=== PATIENT | female | born 1945 | race Caucasian/White ===

== ENCOUNTER 2019-07-13 10:46 | Inpatient (IN) | payer MEDICARE ==
[~2019-07-13 10:46] MED LIST: Iopamidol-370 76% 500 ML 1 ML ONE
[2019-07-13 11:12] LABS: #Basophils 0.1 thou/uL (0.0-0.2); #Eosinphils 0.1 thou/uL (0.0-0.7); #Lymphocytes 2.8 thou/uL (1.20-3.40); #Monocytes 0.8 thou/uL (0.11-0.59); #Neutrophils 5.7 thou/uL (1.40-6.50); %Basophils 0.9 % (0.0-1.0); %Eosinophils 1.2 % (0.0-10.0); %Lymphocytes 29.6 % (21.0-51.0); %Monocytes 8.5 % (0.0-10.0); %Neutrophils 59.8 % (42.0-75.0); Hemoglobin 16.7 g/dL (12.0-16.0); Mean Corpuscular HGB CONC 32.9 g/dL (32.0-36.0); Mean Corpuscular Hemoglobin 32.5 pg (27.0-31.0); Mean Corpuscular Volume 98.8 fL (78.0-98.0); Mean Platelet Volume 7.7 fL (7.4-10.4); Platelet Count 192 thou/uL (130-400); RBC Distribution Width 12.2 % (11.5-14.5); Red Blood Cell (RBC) Count 5.13 mill/uL (4.20-5.40); White Blood Cell (WBC) Count 9.5 thou/uL (4.8-10.8)
[2019-07-13 11:20] LABS: INR-International Normal Ratio 0.9; PTT 31.1 SEC (22.9-36.1); Prothrombin Time 12.5 sec (12.0-14.7)
[2019-07-13] MEDS ORDERED: Labetalol HCl 100 MG/20 ML VIAL ONE (11:29)
[2019-07-13 11:34] LABS: ALT (SGPT) 74 U/L (8-55); AST (SGOT) 64 U/L (5-34); Albumin 3.9 g/dL (3.4-4.8); Alkaline Phosphatase 117 U/L (40-110); Anion Gap 16 mmol/L (10-20); BUN (Urea Nitrogen) 14 mg/dL (9.8-20.1); Bilirubin, Total 0.6 mg/dL (0.2-1.2); Calc. Creatinine Clearance 0 mL/min (70-130); Calcium 9.5 mg/dL (7.8-10.44); Carbon Dioxide 23 mmol/L (23-31); Chloride 105 mmol/L (98-107); Estimated GFR-MDRD 67; Globulin 3.1 g/dL (2.4-3.5); Glucose 128 mg/dL (83-110); Potassium 4.3 mmol/L (3.5-5.1); Sodium 140 mmol/L (136-145)
--- NOTE | 2019-07-13 11:52 | CT ---
EXAM: CT angiogram head and neck with IV contrast and 3-D reconstructions PROVIDED CLINICAL HISTORY: Slurred speech with left facial droop as well as left-sided weakness and numbness. COMPARISON: Noncontrast CT head also obtained on this date. FINDINGS: Vascular calcifications are seen in the aortic arch with mild irregular atherosclerotic plaque. A nor mal arrangement of the great vessels is present at the aortic arch which are patent. Bilateral subclavian arteries as well as innominate artery and bilateral common carotid arteries are patent. The left internal carotid artery is patent. The right internal carotid artery is occluded with the occlusion extending from the origin of the ICA to the right M1 segment of the right middle cerebral artery. There is also evidence of a filling defect seen in the proximal M1 segment right middle cerebral artery. The exact age of this occlusion is difficult to entirely excluded. Bilateral vertebral arteries are patent. The left vertebral artery is dominant. Basilar artery and bi lateral posterior cerebral arteries are patent. The left middle cerebral artery and anterior cerebral arteries are patent. As described above, there is a filling defect related to thrombus present within the M1 segment of th e right middle cerebral artery. However, enhancement is present within the distal portion of the M1 segment and remainder of the right middle cerebral arteries. There are heterogeneous thyroid nodules bilaterally. Thyroid nodule on the right measures 3.7 cm in greatest dimension with heterogeneous nodule left lobe of thyroid gland measuring 1.5 cm. There is a heterogeneously enhancing 1.9 cm circumscribed mass abutting and likely arising from the t ail of the superficial lobe right parotid gland worrisome for neoplasm. Left parotid gland and bilateral submandibular glands demonstrate a normal CT appearance. No enlarged lymph nodes are seen by CT size criteria within the neck. Degenerative changes are seen in the spine. There is slight anterolisthesis of C3 on C4. 29 hours. Visualized paranasal sinuses are clear. IMPRESSION: 1. Complete occlusion of the right internal carotid artery with the occlusion extended from the origi n to the M1 segment right middle cerebral artery. Exact age of the occlusion is difficult to determine based on this exam. 2. Thrombus in the proximal M1 segment right middle cerebral artery. 3. Patent left internal carotid and left middle cerebral arteries. 4. Heterogeneously enhancing circumscribed mass right neck which abuts and likely arises from the mic l of the right parotid gland. This is suspicious for neoplasm, and ENT consultation is recommended for further evaluation. 5. Heterogeneous thyroid nodules bilaterally. Thyroid ultrasound is recommended for further evaluatio n. 6. Above findings were discussed with Dr. Cancino in the emergency department on 07/13/2019 at 1136 reji rs. Findings concerning occlusion of the right MCA with thrombus in the M1 segment right middle cerebral artery were discussed with Dr. Meeks on 07/13/2019 at 1124 hours.
--- NOTE | 2019-07-13 12:01 | RAD ---
Exam: Chest one view HISTORY:Stroke. Comparison: None FINDINGS: Cardiac silhouette: Normal Aorta: Unremarkable Pulmonary vessels: Normal Costophrenic angles: Clear LUNGS: No masses or consolidation. Pneumothorax: None Osseous abnormalities: None IMPRESSION: No acute cardiopulmonary process.
[2019-07-13] MEDS ORDERED: Sodium Chloride 0.9% 1,000 ML IV SCH (13:47)
[2019-07-13] MEDS ORDERED: Multivit, Adult Inj 10 ML VIAL IV SCH (13:47)
[2019-07-13] MEDS ORDERED: Communication Order-Pharmacy FS SCH (13:47)
[2019-07-13] MEDS ORDERED: Labetalol HCl 100 MG/20 ML VIAL SLOW IVP PRN (13:47)
[2019-07-13] MEDS ORDERED: Lorazepam 2 MG/ML VIAL SLOW IVP PRN (13:47)
[2019-07-13] MEDS ORDERED: Acetaminophen 650 MG Suppository PR PRN (13:47)
[2019-07-13] MEDS ORDERED: Ondansetron ODT 4 MG TAB PO PRN (13:47)
[2019-07-13] MEDS ORDERED: Milk Of Magnesia 30 ML UDCUP PO PRN (13:47)
[2019-07-13] MEDS ORDERED: Ondansetron PF 4 MG/2 ML Vial IVP PRN (13:47)
[2019-07-13] MEDS ORDERED: Mag-Al 1200 mg/1200 mg/30 ML UDCUP PO PRN (13:47)
[2019-07-13] MEDS ORDERED: niCARdipine 25 MG in Sodium Chloride 0.9% 250 ML 240 ML IVPB PRN (13:47)
[2019-07-13] MEDS ORDERED: Bisacodyl 10 MG SUPP PR PRN ×2 (13:47)
[2019-07-13] MEDS ORDERED: hydrALAZINE 20 MG/ML VIAL SLOW IVP PRN (13:47)
[2019-07-13] MEDS ORDERED: Acetaminophen 325 MG TAB PO PRN (13:47)
[2019-07-13] MEDS ORDERED: ADMIXTURE FEE IV SCH (14:30)
[2019-07-13] MEDS ORDERED: MULTIVITAMINS IV SCH (14:30)
[2019-07-13] MEDS ORDERED: SODIUM CHLORIDE IV SCH (14:30)
[2019-07-13 14:32] VITALS: BMI 34.2
--- NOTE | 2019-07-13 14:35 | CT ---
BRAIN CT WITHOUT IV CONTRAST: HISTORY: Level I stroke, slurred speech, left facial droop, left-sided weakness and numbness. FINDINGS: There is some mild atrophy and chronic white matter ischemic change. No focal mass or midline shift. No intra- or extraaxial hemorrhage. Findings were discussed with Dr. Matthews in the emergency room at 10:58 a.m. EDVIN RAMOS
--- NOTE | 2019-07-13 16:25 | CON ---
DATE OF CONSULTATION: 07/13/2019 REASON FOR CONSULTATION: Stroke, status post tPA. HISTORY OF PRESENT ILLNESS: Ms. Deirdre Burnette is a 73-year-old female with medical history significant for hyperlipidemia, came to the [facility] with new onset left-sided weakness and slurred speech. Per patient, she was in her kitchen, reading a book on her iPad, and all of a sudden, she felt extremely weak on the left side and was unable to get up and go to the other room. She face- timed her daughter, who noticed a left facial droop and called EMS. The symptoms happened around 11:00 and she was brought to the emergency room at [facility], where a head CT was done, which was negative for acute intracranial pathology or bleed. CTA of the head and neck was also unremarkable. She was given tPA and transferred to ICU for further management. The patient denies any history of prior strokes. She denies nausea, vomiting, headache, chest pain, abdominal pain, loss of vision, or loss of consciousness associated with the episode. She did notice some twitching on the left side. REVIEW OF SYSTEMS: All 10 systems were reviewed and were negative except pertinent positive mentioned in the HPI. ALLERGIES: BACITRACIN, NEOMYCIN, AND POLYMYXIN B. MEDICATIONS: 1. Lipitor. 2. Pepcid. 3. Hydralazine. 4. Nicardipine. 5. Magnesium oxide. 6. Docusate sodium. 7. Labetalol. 8. Lovenox. 9. Tylenol. PAST MEDICAL HISTORY: Significant for hyperlipidemia and chronic pain. PAST SURGICAL HISTORY: Not significant. FAMILY HISTORY: No family history of stroke. SOCIAL HISTORY: The patient lives alone. She does smoke. Denies alcohol or illegal drug abuse. PHYSICAL EXAMINATION: VITAL SIGNS: Blood pressure 141/73, pulse 95, temperature 99. CVS: Regular rate and rhythm. CHEST: Clear. ABDOMEN: Soft. NECK: No carotid bruit. NEUROLOGIC: Mental status, the patient is alert and oriented to person, place, and time. Speech is clear. Cranial nerves 2 through 12 are intact. Sensory intact. Cerebellar, slow on the left. Motor, muscle tone and bulk are normal. Strength 5/5 except left upper extremity 4+/5. Gait not tested because of the patient's safety reasons. Reflexes symmetric bilaterally. DATA REVIEWED: I reviewed the CT scan, which was negative for acute intracranial pathology. CT of the head and neck was also unremarkable. ASSESSMENT AND PLAN: Ms. Deirdre Burnette is a 73-year-old, who presented to the emergency room with acute onset left-sided weakness and slurred speech, the patient is clinically improved status post tPA. Neuro checks every [address] if the condition worsens. Hold anticoagulants for the next 24 hours. Check lipid panel, hemoglobin, and A1c. MRI of the brain when stable. Needs head CT 24 hours post tPA. Continue home medications. Continue medical management per primary team. Echocardiography to rule out cardioembolic source. We will continue to follow. Thank you for the consult. Job ID: [id number] MTDD
--- NOTE | 2019-07-13 16:37 | HP ---
PRIMARY CARE PHYSICIAN: REASON FOR ADMISSION: Acute CVA, status post tPA. HISTORY OF PRESENT ILLNESS: A 73-year-old female, who has underlying history of tobacco and alcohol abuse, who was brought to emergency room by Paramedics for level 1 stroke. The patient was normal in her health around 10:00 a.m. Subsequently, the patient's daughter noticed that the patient was having left arm and left leg weakness and she was also experiencing numbness on that side. The patient was also having difficulty speaking and the patient's daughter noticed left-sided facial droop. 911 was called and subsequently, the patient was brought to the emergency room. The patient arrived to emergency room at 10:46 and subsequently, the patient had a CT brain, which did not show any acute process other than mild atrophy and chronic white matter ischemic changes. Chest x-ray was unremarkable. CT angiography of head and neck showed complete occlusion of her right internal carotid artery with occlusion extended from origin to M1 segment of right middle cerebral artery. There was also thrombus in the proximal M1 segment of right middle cerebral artery. As the patient was not having any absolute contraindication for tPA and the patient was having pronounced weakness on the left upper and lower extremity and that is why the patient was given tPA. ER physician discussed with Neurosurgery about any possible chance of mechanical thrombectomy. As per my report with the ER physician, the patient was not a candidate for any mechanical intervention. When the patient arrived to the emergency room, her NIH score was 21 and subsequently after tPA, her NIH score improved to 15 and subsequently her NIH score improved to 3. The patient has significant improvement in her left upper and lower extremity weakness. Her speech has been improved. When she arrived to emergency room, she was hypertensive and she was given labetalol 10 mg IV push. PAST MEDICAL HISTORY: The patient does not have any known medical problem other than the patient has a history of tobacco and alcohol abuse. PAST SURGICAL HISTORY: Hysterectomy. PAST PSYCHIATRIC HISTORY: Anxiety disorder. SOCIAL HISTORY: The patient drinks one bottle of wine on daily basis. She also smokes about one pack per day. She is smoking for last 20 years. No other illicit drug abuse. FAMILY HISTORY: No strong family history of premature coronary artery disease, stroke, or cancer. ALLERGIES: BACITRACIN, NEOMYCIN, AND NEOSPORIN. CURRENT HOME MEDICATIONS: Benadryl on as needed basis. REVIEW OF SYSTEMS: CONSTITUTIONAL: Negative for weight loss or gain, ability to conduct usual activities. SKIN: Negative for rash, itching. EYES: Negative for double vision, pain. ENT/MOUTH: Negative for nose bleeding, neck stiffness, pain, tenderness. CARDIOVASCULAR: Negative for palpitations, dyspnea on exertion, orthopnea. RESPIRATORY: Negative for shortness of breath, wheezing, cough, hemoptysis, fever or night sweats. GASTROINTESTINAL: Negative for poor appetite, abdominal pain, heartburn, nausea, vomiting, constipation, or diarrhea. GENITOURINARY: Negative for urgency, frequency, dysuria, nocturia. MUSCULOSKELETAL: Negative for pain, swelling. NEUROLOGIC/PSYCHIATRIC: Negative for anxiety, depression. ALLERGY/IMMUNOLOGIC: Negative for skin rash, bleeding tendency. Please see my HPI for pertinent positives and negatives. All other review of systems reviewed and negative except as mentioned in HPI. EMERGENCY ROOM COURSE: The patient has received IV fluid and tPA and labetalol 10 mg. PHYSICAL EXAMINATION: VITAL SIGNS: On arrival, blood pressure 192/88, pulse 75, respiratory rate 20, temperature 97.7, and saturation 96% on room air. Weight 92.2 kg. GENERAL: The patient is currently alert, awake, no acute distress. Mild dysarthria noted. HEENT: Head; normocephalic and atraumatic. Eyes; pupils are round and reactive to light. Extraocular muscle intact. ENT, oropharynx within normal limits. Moist mucous membranes. No oral lesions. No pharyngeal erythema. No exudate. NECK: Supple. No JVD. No meningeal signs of irritation. LUNGS: Clear to auscultation without any rhonchi or rales. CARDIAC: S1 and S2 regular. No murmur. No gallop. No rub. ABDOMEN: Soft, bowel sounds present, nontender, nondistended. No organomegaly. No mass. EXTREMITIES: No edema. Good distal pulsation. SKIN: No skin rash. Hematological SYSTEM: No lymphadenopathy. NEUROLOGIC: The patient has mild dysarthria, left-sided facial droop noted, left-sided hemineglect as well as left-sided upper and lower extremity weakness. Subsequently, when re-examined at that time, the patient has significant improvement in her speech as well as left-sided upper and lower extremity weakness. The patient has only mild pronator drift on that side. PSYCHIATRIC: Normal affect. SIGNIFICANT DIAGNOSTIC DATA: EKG showing normal sinus rhythm, occasional premature atrial complexes noted. Chest x-ray based on my review, no acute cardiopulmonary process. CT brain based on my review, mild atrophy and chronic white matter ischemic changes without any acute process. CT angiography showed complete occlusion of right internal carotid artery with occlusion extended from the origin to M1 segment of right middle cerebral artery, thrombus in the proximal M1 segment of right middle cerebral artery. LABORATORY DATA: CBC; WBC 9.5, hemoglobin 16.7, and platelet 192. INR 0.9. BMP; sodium 140, potassium 4.3, chloride 105, carbon dioxide 23, BUN 14, creatinine 0.83, glucose 128, and calcium 9.5. LFT; AST 264, ALT 74, alkaline phosphatase 117, albumin 3.9, troponin 0.010. Alcohol level less than 10. ASSESSMENT AND PLAN: 1. Acute right middle cerebral artery territory cerebrovascular accident with a left upper and lower extremity weakness, dysarthria and facial droop, significant improvement after tPA. The patient was in window period for tPA and she was given tPA after that. The patient has significant improvement. At this point, the patient is admitted in ICU. Neurology will be consulted. Neurosurgery will be consulted for opinion regarding mechanical intervention. We will continue aspirin 325 mg p.o. daily after 24 hours. We will continue Lipitor 40 mg p.o. at bedtime, entire stroke team including PT, OT, speech evaluation. We will obtain echocardiography and MRI brain. Will closely monitor in the ICU based on protocol. 2. Hypertension. We will keep permissive hypertension at this point, will use labetalol on p.r.n. basis. 3. Tobacco abuse disorder. Smoking cessation counseling given and will use nicotine patch. 4. Alcohol abuse. Will use lorazepam p.r.n. basis to control withdrawal symptoms if needed. Meanwhile, we will continue with folic acid 1 mg p.o. daily, thiamine 100 mg p.o. daily, multivitamin one tablet p.o. daily, and vitamin B12 1000 mcg p.o. daily. 5. Dyslipidemia. We will check lipid profile tomorrow and continue Lipitor 40 mg p.o. at bedtime. 6. Abnormal LFTs, likely related with her alcohol use. We will repeat CMP tomorrow. 7. Obesity with BMI 34. Diet education given. Weight loss education given. 8. Deep venous thrombosis prophylaxis. Will start Lovenox 40 mg after 24 hours. 9. Gastrointestinal prophylaxis, Pepcid 20 mg p.o. or IV b.i.d. CODE STATUS: The patient is full code. The patient's daughter is surrogate decision maker. DISPOSITION PLAN: Based on clinical course. The patient will need rehabilitation placement. Job ID: [id number]
[2019-07-13] MEDS: BEER 1 CAN PO SCH (18:16)
[2019-07-13] MEDS: Famotidine/PF 20 mg/2ml Vial SLOW IVP SCH (19:50)
[2019-07-13] MEDS: Atorvastatin Calcium 40 MG TAB PO SCH (19:50)
[2019-07-13] MEDS: Famotidine 20 MG TAB PO SCH (19:50)
[2019-07-14] MEDS: Acetaminophen 325 MG TAB PO PRN ×2 (04:52→16:44)
--- NOTE | 2019-07-14 07:31 | CON ---
DATE OF CONSULTATION: 07/13/2019 HISTORY OF PRESENT ILLNESS: Ms. Burnette is a 73-year-old, who was sitting at the kitchen table today. She tried to get up and could not. She felt like she was going to pass out and wanted to get to her recliner, but could not move. She had difficult speech and could not move her left side. She received tPA in the Emergency Department. She has had complete return of her function of her left-sided extremities and her speech. She does have a little latency of response to questions. PAST MEDICAL HISTORY: Remarkable for lipid disorder. MEDICATIONS: Here, she is on; 1. Lipitor. 2. Pepcid. 3. Hydralazine. 4. Nicardipine. 5. Magnesium. 6. Stool softener. 7. Labetalol. 8. Lovenox. 9. Tylenol. FAMILY HISTORY: Negative for lung disease in early age. SOCIAL HISTORY: She is a half pack-a-day smoker. She is a daily wine drinker. Daughter apparently called the nurse and said she drinks a bottle of red wine every night and said she gets shaky if she does not have her wine, so we have ordered a beer with her lunch and supper. PHYSICAL EXAMINATION: GENERAL: She is in no distress. Her speech is fluent, but she has a delayed response slightly. VITAL SIGNS: Blood pressure is 156/106, heart rate is 85, respiratory rate in the 20s, and oximetry is 100%. HEAD AND NECK: Unremarkable. LUNGS: Clear. HEART: Regular rhythm. S1 and S2 are normal. ABDOMEN: Soft and nontender. EXTREMITIES: Without clubbing, cyanosis, or edema. LABORATORY DATA: White count 9.5, hemoglobin 16.7, and platelets 192. Electrolytes are normal. Glucose 128. Liver enzymes were mildly elevated. IMPRESSION AND PLAN: 1. Status post thrombotic cerebrovascular accident with dramatic improvement in neurological function after tPA. 2. Tobacco use. No wheezing. 3. Daily alcohol use with a history of getting jittery with no alcohol, so we will give her beer with her meals. We will follow with the other physicians while she is in the Critical Care Unit. A 70-minute consult, 50% of the time was spent on the unit coordinating care. ADDENDUM: She has passed her swallowing evaluation. Job ID: [id number] [facility]
[2019-07-14] MEDS: Famotidine/PF 20 mg/2ml Vial SLOW IVP SCH ×2 (08:47→20:05)
[2019-07-14] MEDS: Nicotine 21 MG PATCH TD SCH (08:48)
[2019-07-14] MEDS: Folic Acid 1 MG TAB PO SCH (08:48)
[2019-07-14] MEDS: Multivitamin W/ Minerals 1 TAB PO SCH (08:48)
[2019-07-14] MEDS: Cyanocobalamin (Vitamin B-12) 1,000 MCG TAB PO SCH (08:48)
[2019-07-14] MEDS: Famotidine 20 MG TAB PO SCH ×2 (08:48→20:46)
[2019-07-14] MEDS: Thiamine 100 MG TAB PO SCH (08:48)
--- NOTE | 2019-07-14 08:50 | PRG ---
DATE OF SERVICE: 07/14/2019 SUBJECTIVE: Ms. Burnette is clinically better. Her speech is dramatically improved. OBJECTIVE: VITAL SIGNS: Heart rate in the 60s, blood pressure 173/80, respiratory rates in the teens, and oximetry is 98%. LUNGS: Clear. HEART: Regular rhythm. ABDOMEN: Soft. Strength is symmetrical. LABORATORY DATA: Not repeated today. IMPRESSION: 1. Status post tPA. 2. Mildly elevated liver enzymes. Overall, she appears to be clinically stable at this point in time. Job ID: [id number]
[2019-07-14] MEDS ORDERED: Aspirin 325 MG TAB PO SCH (09:00)
[2019-07-14] MEDS: BEER 1 CAN PO SCH ×2 (12:16→17:50)
[2019-07-14] MEDS ORDERED: Prevnar 13-Val Conj/PF 0.5 ML SYRINGE IM ONE (15:00)
--- NOTE | 2019-07-14 15:15 | PDOC.HOSPP ---
- Subjective Encounter Date: 07/14/19 Subjective: NEUROLOGY PROGRESS NOTE Patient is alert, awake and following commands appropriately. - Objective Vital Signs & Weight: Vital Signs (12 hours) Temp Pulse Ox 07/14/19 08:00 97 07/14/19 07:00 98.6 F Weight Weight 206 lb 2.115 oz Most Recent Monitor Data Heart Rate from ECG 77 NIBP 164/86 NIBP BP-Mean 112 Respiration from ECG 24 SpO2 97 I&O: 07/13/19 07/14/19 07/15/19 06:59 06:59 06:59 Intake Total 1214 325 Output Total 830 250 Balance 384 75 Result Diagrams: 07/13/19 10:58 07/13/19 10:58 Radiology Reviewed by me: Yes EKG Reviewed by me: Yes Hospitalist ROS - Review of Systems Constitutional: denies: fever, chills, sweats, weakness, malaise, other Eyes: denies: pain, vision change, conjunctivae inflammation, eyelid inflammation, redness, other ENT: denies: ear pain, ear discharge, nose pain, nose discharge, nose congestion , mouth pain, mouth swelling, throat pain, throat swelling, other Respiratory: denies: cough, dry, shortness of breath, hemoptysis, SOB with excertion, pleuritic pain, sputum, wheezing, other Cardiovascular: denies: chest pain, palpitations, orthopnea, paroxysmal noc. dyspnea, edema, light headedness, other Gastrointestinal: denies: nausea, vomiting, abdominal pain, diarrhea, constipation, melena, hematochezia, other Genitourinary: denies: dysuria, frequency, incontinence, hematuria, retention, other Neurological: reports: weakness, incoordination, confusion - Medication Medications: Active Medications Generic Name Dose Route Start Last Admin Trade Name Freq PRN Reason Stop Dose Admin Acetaminophen 650 mg 07/13/19 13:47 07/14/19 04:52 Tylenol PO 650 mg Q6H PRN Administration Headache/Fever/Mild Pain (1-3) Aspirin 325 mg 07/14/19 09:00 07/14/19 08:48 Aspirin PO 325 mg DAILY PUSHPA Administration Atorvastatin Calcium 40 mg 07/13/19 21:00 07/13/19 19:50 Lipitor PO 40 mg HS PUSHPA Administration Beer 1 each 07/13/19 17:00 07/14/19 12:16 Beer PO 1 each 1200,1700 PUSHPA Administration Cyanocobalamin 1,000 mcg 07/14/19 09:00 07/14/19 08:48 Vitamin B-12 PO 1,000 mcg DAILY PUSHPA Administration Famotidine 20 mg 07/13/19 21:00 07/14/19 08:47 Pepcid SLOW IVP Not Given Q12HR PUSHPA Famotidine 20 mg 07/13/19 21:00 07/14/19 08:48 Pepcid PO 20 mg BID PUSHPA Administration Folic Acid 1 mg 07/14/19 09:00 07/14/19 08:48 Folvite PO 1 mg DAILY PUSHPA Administration Iron/Minerals/Multivitamins 1 tab 07/14/19 09:00 07/14/19 08:48 Theragran M PO 1 tab DAILY PUSHPA Administration Labetalol HCl 10 mg 07/13/19 13:47 07/13/19 16:18 Normodyne SLOW IVP 10 mg Q10MIN PRN Administration SBP > 180 or DBP > 105 Nicotine 21 mg 07/14/19 09:00 07/14/19 08:48 Nicoderm Patch TD 21 mg DAILY PUSHPA Administration Sodium Chloride 10 ml 07/13/19 21:00 07/14/19 08:49 Flush - Normal Saline IVF 10 ml Q12HR PUSHPA Administration Thiamine HCl 100 mg 07/14/19 09:00 07/14/19 08:48 Thiamine PO 100 mg DAILY PUSHPA Administration - Exam General Appearance: awake alert Eye: PERRL, anicteric sclera ENT: normocephalic atraumatic, no oropharyngeal lesions Neck: supple Heart: RRR Respiratory: CTAB Gastrointestinal: soft Extremities: no cyanosis, no clubbing, no edema Skin: normal turgor, no lesions, no rashes Neurological: cranial nerve grossly intact, normal sensation to touch, no weakness Hosp A/P (1) CVA (cerebral vascular accident) Code(s): I63.9 - CEREBRAL INFARCTION, UNSPECIFIED Status: Acute - Plan PT/OT, speech therapy, DVT proph w/SCDs 73 year old with slurred speech and left sided wekness s/p tpa which is now resolved. Recommend MRI Brain to rule out acute intracranial pathology. Echocardiography did not show any thrombus or PFO. Aspirin and statin for secondary stroke prevention. Telemetry Neurochecks every 4 hours. Continue home medications. Strict control of BP and BG. Continue medical management per primary team. PT/OT/Speech
--- NOTE | 2019-07-14 16:26 | PDOC.HOSPP ---
- Subjective Subjective: Seen and examined in the intensive care unit. Patient has had a dramatic improvement status post tPA administration. I do not appreciate any speech deficits. I do not appreciate any motor weakness in the upper or lower extremity. I do not appreciate a facial droop. Patient was counseled on the importance of alcohol and tobacco cessation. Time was given for questions, all answered in detail. - Objective Vital Signs & Weight: Vital Signs (12 hours) Temp Pulse Pulse Pulse Resp BP BP 07/14/19 14:40 98.0 F 69 18 07/14/19 13:30 76 76 162/120 H 175/88 H 07/14/19 13:29 77 162/120 H 175/88 H 07/14/19 08:00 07/14/19 07:00 98.6 F BP Pulse Ox Pulse Ox Pulse Ox 07/14/19 14:40 160/85 H 93 L 07/14/19 13:30 98 98 07/14/19 13:29 99 07/14/19 08:00 97 07/14/19 07:00 Weight Weight 206 lb 2.115 oz Most Recent Monitor Data Heart Rate from ECG 77 NIBP 164/86 NIBP BP-Mean 112 Respiration from ECG 24 SpO2 97 I&O: 07/13/19 07/14/19 07/15/19 06:59 06:59 06:59 Intake Total 1214 325 Output Total 830 250 Balance 384 75 Result Diagrams: 07/13/19 10:58 07/13/19 10:58 Radiology Reviewed by me: Yes Hospitalist ROS - Review of Systems All other systems reviewed; all pertinent +/- noted in HPI/Subj - Medication Medications: Active Medications Generic Name Dose Route Start Last Admin Trade Name Freq PRN Reason Stop Dose Admin Acetaminophen 650 mg 07/13/19 13:47 07/14/19 04:52 Tylenol PO 650 mg Q6H PRN Administration Headache/Fever/Mild Pain (1-3) Aspirin 325 mg 07/14/19 09:00 07/14/19 08:48 Aspirin PO 325 mg DAILY PUSHPA Administration Atorvastatin Calcium 40 mg 07/13/19 21:00 07/13/19 19:50 Lipitor PO 40 mg HS PUSHPA Administration Beer 1 each 07/13/19 17:00 07/14/19 12:16 Beer PO 1 each 1200,1700 PUSHPA Administration Cyanocobalamin 1,000 mcg 07/14/19 09:00 07/14/19 08:48 Vitamin B-12 PO 1,000 mcg DAILY PSUHPA Administration Famotidine 20 mg 07/13/19 21:00 07/14/19 08:47 Pepcid SLOW IVP Not Given Q12HR [facility] Famotidine 20 mg 07/13/19 21:00 07/14/19 08:48 Pepcid PO 20 mg BID PUSHPA Administration Folic Acid 1 mg 07/14/19 09:00 07/14/19 08:48 Folvite PO 1 mg DAILY PUSHPA Administration Iron/Minerals/Multivitamins 1 tab 07/14/19 09:00 07/14/19 08:48 Theragran M PO 1 tab DAILY PUSHPA Administration Labetalol HCl 10 mg 07/13/19 13:47 07/13/19 16:18 Normodyne SLOW IVP 10 mg Q10MIN PRN Administration SBP > 180 or DBP > 105 Nicotine 21 mg 07/14/19 09:00 07/14/19 08:48 Nicoderm Patch TD 21 mg DAILY PUSHPA Administration Sodium Chloride 10 ml 07/13/19 21:00 07/14/19 08:49 Flush - Normal Saline IVF 10 ml Q12HR PUSHPA Administration Thiamine HCl 100 mg 07/14/19 09:00 07/14/19 08:48 Thiamine PO 100 mg DAILY PUSHPA Administration - Exam General Appearance: NAD, awake alert Eye: anicteric sclera ENT: normocephalic atraumatic, moist mucosa Neck: supple, symmetric, no lymphadenopathy Heart: no murmur, no gallops, no rubs, normal peripheral pulses Respiratory: no rales, normal chest expansion, no tachypnea, rhonchi, wheezes Gastrointestinal: soft, non-tender, non-distended, no guarding, no rigidity Extremities: no edema Skin: no lesions, no rashes Neurological: cranial nerve grossly intact, normal sensation to touch, no weakness, no focal deficits, no new deficit. negative: speech deficit Psychiatric: normal affect, normal behavior, A&O x 3 Hosp A/P (1) HTN (hypertension) Code(s): I10 - ESSENTIAL (PRIMARY) HYPERTENSION Status: Acute (2) Tobacco abuse Code(s): Z72.0 - TOBACCO USE Status: Acute (3) Alcohol abuse Code(s): F10.10 - ALCOHOL ABUSE, UNCOMPLICATED Status: Acute (4) HLD (hyperlipidemia) Code(s): E78.5 - HYPERLIPIDEMIA, UNSPECIFIED Status: Acute (5) Dysarthria Code(s): R47.1 - DYSARTHRIA AND ANARTHRIA Status: Acute (6) Left arm weakness Code(s): R29.898 - OTH SYMPTOMS AND SIGNS INVOLVING THE MUSCULOSKELETAL SYSTEM Status: Acute (7) CVA (cerebral vascular accident) Code(s): I63.9 - CEREBRAL INFARCTION, UNSPECIFIED Status: Acute - Plan Plan: intensive care unit neurology consultation, recommendations appreciated critical-care consultation, recommendations appreciated stroke protocol MRI brain echocardiogram CTA head and neck status post tPA administration with a good response no appreciated focal neurologic deficits, normal influence speech will need stroke regimen prior to discharge -Statin -Sudhakar inh -ASA patient will need to abstain from tobacco and alcohol to avoid future complications blood pressure control blood sugar control G.I. prophylaxis DVT prophylaxis
[2019-07-14 16:45] LABS: #Eosinphils 0.1 thou/uL (0.0-0.7); #Lymphocytes 1.9 thou/uL (1.20-3.40); #Monocytes 0.5 thou/uL (0.11-0.59); %Basophils 0.5 % (0.0-1.0); %Eosinophils 1.1 % (0.0-10.0); %Lymphocytes 22.1 % (21.0-51.0); %Monocytes 6.2 % (0.0-10.0); Hemoglobin 15.4 g/dL (12.0-16.0); Mean Corpuscular HGB CONC 32.5 g/dL (32.0-36.0); Mean Corpuscular Hemoglobin 32.3 pg (27.0-31.0); Mean Corpuscular Volume 99.3 fL (78.0-98.0); Mean Platelet Volume 7.6 fL (7.4-10.4); Platelet Count 150 thou/uL (130-400); RBC Distribution Width 12.2 % (11.5-14.5); Red Blood Cell (RBC) Count 4.76 mill/uL (4.20-5.40); White Blood Cell (WBC) Count 8.6 thou/uL (4.8-10.8)
[2019-07-14 17:03] LABS: ALT (SGPT) 62 U/L (8-55); AST (SGOT) 60 U/L (5-34); Albumin 3.6 g/dL (3.4-4.8); Alkaline Phosphatase 107 U/L (40-110); Anion Gap 13 mmol/L (10-20); BUN (Urea Nitrogen) 10 mg/dL (9.8-20.1); Bilirubin, Total 0.6 mg/dL (0.2-1.2); Calc. Creatinine Clearance 96 mL/min (70-130); Calcium 8.7 mg/dL (7.8-10.44); Carbon Dioxide 23 mmol/L (23-31); Cardiac Risk 3.5 (Less than 4.5); Chloride 106 mmol/L (98-107); Cholesterol 176 mg/dl (< 200 Desired); Estimated GFR-MDRD 75; Globulin 2.8 g/dL (2.4-3.5); Glucose 144 mg/dL (83-110); HDL Cholesterol 51 mg/dL (>60 Neg Risk); LDL Cholesterol, Calculated 110 mg/dL; Potassium 3.9 mmol/L (3.5-5.1); Protein, Total 6.4 g/dL (6.0-8.3); Sodium 138 mmol/L (136-145); Triglycerides 73 mg/dL (Less than 150)
--- NOTE | 2019-07-14 17:20 | MRI ---
BRAIN MRI WITHOUT CONTRAST: 07/14/19 COMPARISON: Head CT 07/13/19. HISTORY: Status post TPA, recent acute stroke protocol. TECHNIQUE: Multiplanar and multisequence MR imaging of the brain is provided without contrast. FINDINGS: The diffusion weighted imaging demonstrates a small area of restricted diffusion within the posterio r lateral right temporo-occipital region measuring 1.2 cm, consistent with an area of acute infarctio n. In addition, there are foci of restricted diffusion consistent with acute infarction within the la teral mid right frontal lobe extending inferiorly to involve the inferior aspect of the right frontal lobe. Foci of restricted diffusion on the basis of acute infarction also noted within the periventr icular white matter adjacent to the body of the right lateral ventricle. The gradient echo imaging de monstrates blooming artifact consistent with intracranial hemorrhage within the area of acute infarct ion within the posterior inferior right frontal lobe. This area of intracranial hemorrhage measures 2 .5 x 2.5 cm. There is no midline shift apparent on this examination. 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 Arterial structures are better assessed on the CT angiogram performed 07/13/19 . Imaged paranasal sinuses and mastoid air cells are well aerated. Regional bone marrow signal intensit y within normal limits. IMPRESSION: Multifocal acute infarction on the right, most prominent within the right frontal lobe as above. Ther e is associated intracranial hemorrhage associated with the right frontal acute infarction measuring 2.5 x 2.5 cm. Short term follow-up CT examination is advised. POS: [facility]
[2019-07-14] MEDS: Atorvastatin Calcium 40 MG TAB PO SCH (20:46)
[2019-07-14] MEDS ORDERED: Enoxaparin Sodium 40 MG/0.4 ML SYRINGE SC SCH (21:00)
[2019-07-15] MEDS: Acetaminophen 325 MG TAB PO PRN ×3 (00:24→18:44)
[2019-07-15] MEDS ORDERED: HYDROcodone/Acetaminophen 5/325 mg Tablet PO SCH (06:00)
[2019-07-15] MEDS: Famotidine/PF 20 mg/2ml Vial SLOW IVP SCH ×2 (08:04→20:57)
[2019-07-15] MEDS: Thiamine 100 MG TAB PO SCH (08:42)
[2019-07-15] MEDS: Multivitamin W/ Minerals 1 TAB PO SCH (08:42)
[2019-07-15] MEDS: Famotidine 20 MG TAB PO SCH ×2 (08:42→20:56)
[2019-07-15] MEDS: Nicotine 21 MG PATCH TD SCH (08:42)
[2019-07-15] MEDS: Lisinopril 5 MG TAB PO SCH (08:42)
[2019-07-15] MEDS: Cyanocobalamin (Vitamin B-12) 1,000 MCG TAB PO SCH (08:43)
[2019-07-15] MEDS: Folic Acid 1 MG TAB PO SCH (08:43)
--- NOTE | 2019-07-15 09:33 | CT ---
CT HEAD WITHOUT IV CONTRAST COMPARISON: MRI brain on 07/14/[address] head on 07/13/2019 HISTORY: Follow-up intracranial hemorrhage. TECHNIQUE: Axial CT imaging at 5 mm intervals from vertex through skull base without contrast FINDINGS: Low-density area right frontal lobe adjacent to the sylvian fissure is again seen with associated hem orrhage. The area of hemorrhage measures 2.4 cm x 2.1 cm. Findings on prior MRI examination were suggestive of an acute infarction with associated hemorrhage. Smaller low-density areas are seen with in the anterior right frontal lobe as well as involving the right temporal occipital lobe compatible with areas of infarction noted on prior MRI. There is a small focus of subarachnoid hemorr jonel within the anterior superior right frontal lobe. Mild mass effect is seen on the sylvian fissure related to edema secondary to right frontal lobe infarction. There is no midline shift. The ventricular system is normal in size, shape, and position. Visualized paranasal sinuses are clear. Osseous structures appear intact. IMPRESSION: 1. Multifocal acute infarctions right frontal lobe as well as in right temporal occipital lobe which were seen on prior MRI examination. Hemorrhage is again associated with the right frontal lobe acute infarction, and the area of hemorrhage is overall similar to prior MRI given differences in mod ality. 2. Suggestion of small subarachnoid hemorrhage in the more superior anterior right frontal lobe. 3. Continued follow-up is recommended to ensure evolutionary changes in area of hemorrhage.
[2019-07-15] MEDS: BEER 1 CAN PO SCH ×2 (12:01→18:43)
--- NOTE | 2019-07-15 12:15 | PDOC.HOSPP ---
- Subjective Encounter Date: 07/15/19 Subjective: NEUROLOGY PROGRESS NOTE Patient is alert, awake and following commands appropriately. - Objective Vital Signs & Weight: Vital Signs (12 hours) Temp Pulse Resp BP BP Pulse Ox 07/15/19 11:40 97.6 F 75 20 139/71 97 07/15/19 08:42 80 162/77 H 07/15/19 07:40 97.8 F 80 16 162/77 H 99 07/15/19 06:35 99 07/15/19 04:33 97.7 F 72 18 144/74 H 99 Weight Weight 204 lb Most Recent Monitor Data Heart Rate from ECG 77 NIBP 164/86 NIBP BP-Mean 112 Respiration from ECG 24 SpO2 97 I&O: 07/14/19 07/15/19 07/16/19 06:59 06:59 06:59 Intake Total 1214 925 240 Output Total 830 950 450 Balance 384 -25 -210 Result Diagrams: 07/14/19 16:16 07/14/19 16:16 Radiology Reviewed by me: Yes EKG Reviewed by me: Yes Hospitalist ROS - Review of Systems Constitutional: denies: fever, chills, sweats, weakness, malaise, other Eyes: denies: pain, vision change, conjunctivae inflammation, eyelid inflammation, redness, other ENT: denies: ear pain, ear discharge, nose pain, nose discharge, nose congestion , mouth pain, mouth swelling, throat pain, throat swelling, other Respiratory: denies: cough, dry, shortness of breath, hemoptysis, SOB with excertion, pleuritic pain, sputum, wheezing, other Cardiovascular: denies: chest pain, palpitations, orthopnea, paroxysmal noc. dyspnea, edema, light headedness, other Gastrointestinal: denies: nausea, vomiting, abdominal pain, diarrhea, constipation, melena, hematochezia, other Genitourinary: denies: dysuria, frequency, incontinence, hematuria, retention, other Musculoskeletal: denies: neck pain, shoulder pain, arm pain, back pain, hand pain, leg pain, foot pain, other Neurological: reports: change in speech. denies: weakness, numbness, incoordination, confusion, seizures, other - Medication Medications: Active Medications Generic Name Dose Route Start Last Admin Trade Name Freq PRN Reason Stop Dose Admin Acetaminophen 650 mg 07/13/19 13:47 05/14/20 00:24 Tylenol PO 650 mg Q6H PRN Administration Headache/Fever/Mild Pain (1-3) Albuterol/Ipratropium 3 ml 07/14/19 16:24 07/14/19 22:13 Duoneb NEB 3 ml Q4H PRN Administration SOB &/or Wheezing Atorvastatin Calcium 40 mg 07/13/19 21:00 07/14/19 20:46 Lipitor PO Not Given HS PUSHPA Beer 1 each 07/13/19 17:00 07/15/19 12:01 Beer PO Not Given 1200,1700 PUSHPA Cyanocobalamin 1,000 mcg 07/14/19 09:00 07/15/19 08:43 Vitamin B-12 PO 1,000 mcg DAILY PUSHPA Administration Famotidine 20 mg 07/13/19 21:00 07/15/19 08:04 Pepcid SLOW IVP Not Given Q12HR PUSHPA Famotidine 20 mg 07/13/19 21:00 07/15/19 08:42 Pepcid PO 20 mg BID PUSHPA Administration Folic Acid 1 mg 07/14/19 09:00 07/15/19 08:43 Folvite PO 1 mg DAILY [facility] Administration Iron/Minerals/Multivitamins 1 tab 07/14/19 09:00 07/15/19 08:42 Theragran M PO 1 tab DAILY [facility] Administration Labetalol HCl 10 mg 07/13/19 13:47 07/13/19 16:18 Normodyne SLOW IVP 10 mg Q10MIN PRN Administration TO KEEP SBP < 160 Lisinopril 5 mg 07/15/19 09:00 07/15/19 08:42 Zestril PO 5 mg DAILY [facility] Administration Nicotine 21 mg 07/14/19 09:00 07/15/19 08:42 Nicoderm Patch TD 21 mg DAILY [facility] Administration Sodium Chloride 10 ml 07/13/19 21:00 07/15/19 08:43 Flush - Normal Saline IVF 10 ml Q12HR PUSHPA Administration Thiamine HCl 100 mg 07/14/19 09:00 07/15/19 08:42 Thiamine PO 100 mg DAILY PUSHPA Administration - Exam General Appearance: awake alert Eye: PERRL, anicteric sclera ENT: normocephalic atraumatic, no oropharyngeal lesions Neck: supple Heart: RRR Respiratory: CTAB Gastrointestinal: soft Extremities: no cyanosis, no clubbing, no edema Skin: normal turgor, no lesions, no rashes Neurological: cranial nerve grossly intact, normal sensation to touch, no weakness, speech deficit Musculoskeletal: normal tone, normal strength, no muscle wasting Psychiatric: normal affect, normal behavior, A&O x 3, oriented to person, oriented to place, oriented to time Hosp A/P (1) CVA (cerebral vascular accident) Code(s): I63.9 - CEREBRAL INFARCTION, UNSPECIFIED Status: Acute - Plan 73 year old with slurred speech and left sided wekness s/p tpa which is now resolved. MRI Brain consistent with subacute stroke with associated hemorrhage. HCT today is stable. Will repeat again in AM Neurochecks every 4 hours. Stat HCT if neurological status declines. Echocardiography did not show any thrombus or PFO. Continue statin for secondary stroke prevention. Telemetry Continue home medications. Strict control of BP and BG. Continue medical management per primary team. PT/OT/Speech Plan discussed with patient and the nursing staff.
--- NOTE | 2019-07-15 13:53 | PDOC.HOSPP ---
- Subjective Encounter Date: 07/15/19 Encounter Time: 13:52 Subjective: Ms. Burnette was seen today in follow-up of acute CVA with left sided weakness. She fortunately has regained her strength. She notes concern about an IV which is bothering her. - Objective Vital Signs & Weight: Vital Signs (12 hours) Temp Pulse Resp BP BP Pulse Ox 07/15/19 11:40 97.6 F 75 20 139/71 97 07/15/19 08:42 80 162/77 H 07/15/19 08:35 97 07/15/19 07:40 97.8 F 80 16 162/77 H 99 07/15/19 06:35 99 07/15/19 04:33 97.7 F 72 18 144/74 H 99 Weight Weight 204 lb Most Recent Monitor Data Heart Rate from ECG 77 NIBP 164/86 NIBP BP-Mean 112 Respiration from ECG 24 SpO2 97 I&O: 07/14/19 07/15/19 07/16/19 06:59 06:59 06:59 Intake Total 1214 925 240 Output Total 830 950 450 Balance 384 -25 -210 Result Diagrams: 07/14/19 16:16 07/14/19 16:16 Hospitalist ROS - Medication Medications: Active Medications Generic Name Dose Route Start Last Admin Trade Name Freq PRN Reason Stop Dose Admin Acetaminophen 650 mg 07/13/19 13:47 07/15/19 13:10 Tylenol PO 650 mg Q6H PRN Administration Headache/Fever/Mild Pain (1-3) Albuterol/Ipratropium 3 ml 07/14/19 16:24 07/14/19 22:13 Duoneb NEB 3 ml Q4H PRN Administration SOB &/or Wheezing Atorvastatin Calcium 40 mg 07/13/19 21:00 07/14/19 20:46 Lipitor PO Not Given HS PUSHPA Beer 1 each 07/13/19 17:00 07/14/19 17:50 Beer PO 1 each 1200,1700 PUSHPA Administration Cyanocobalamin 1,000 mcg 07/14/19 09:00 07/15/19 08:43 Vitamin B-12 PO 1,000 mcg DAILY PUSHPA Administration Famotidine 20 mg 07/13/19 21:00 07/15/19 08:04 Pepcid SLOW IVP Not Given Q12HR PUSHPA Famotidine 20 mg 07/13/19 21:00 07/15/19 08:42 Pepcid PO 20 mg BID PUSHPA Administration Folic Acid 1 mg 07/14/19 09:00 07/15/19 08:43 Folvite PO 1 mg DAILY PUSHPA Administration Iron/Minerals/Multivitamins 1 tab 07/14/19 09:00 07/15/19 08:42 Theragran M PO 1 tab DAILY PUSHPA Administration Labetalol HCl 10 mg 07/13/19 13:47 07/13/19 16:18 Normodyne SLOW IVP 10 mg Q10MIN PRN Administration TO KEEP SBP < 160 Lisinopril 5 mg 07/15/19 09:00 07/15/19 08:42 Zestril PO 5 mg DAILY PUSHPA Administration Nicotine 21 mg 07/14/19 09:00 07/15/19 08:42 Nicoderm Patch TD 21 mg DAILY PUSHPA Administration Sodium Chloride 10 ml 07/13/19 21:00 07/15/19 08:43 Flush - Normal Saline IVF 10 ml Q12HR PUSHPA Administration Thiamine HCl 100 mg 07/14/19 09:00 07/15/19 08:42 Thiamine PO 100 mg DAILY PUSHPA Administration - Exam General Appearance: NAD Eye: PERRL, anicteric sclera ENT: normocephalic atraumatic, no oropharyngeal lesions Heart: RRR, no murmur, no gallops, no rubs, normal peripheral pulses Respiratory: CTAB, no wheezes, no rales, no ronchi, normal chest expansion, no tachypnea Gastrointestinal: soft, non-tender, non-distended, normal bowel sounds, no palpable masses, no hepatomegaly Extremities: no cyanosis, no edema, 1+ LE edema (+ bruising in the upper extemities) Neurological: no weakness, no focal deficits Musculoskeletal: no muscle wasting Psychiatric: normal affect, A&O x 3 Hosp A/P (1) CVA (cerebral vascular accident) Code(s): I63.9 - CEREBRAL INFARCTION, UNSPECIFIED Status: Acute (2) Alcohol abuse Code(s): F10.10 - ALCOHOL ABUSE, UNCOMPLICATED Status: Chronic (3) HTN (hypertension) Code(s): I10 - ESSENTIAL (PRIMARY) HYPERTENSION Status: Acute (4) Tobacco abuse Code(s): Z72.0 - TOBACCO USE Status: Chronic - Plan * Acute right MCA CVA, s/p TPA- she is clinically stable * She agrees to take Lipitor * HTN- will start Lisinopril for better blood pressure control * Continue PT/OT * CT scan of the brain noted * Continue to monitor in the hospital
[2019-07-15] MEDS ORDERED: BEER 1 CAN PO SCH (14:45)
--- NOTE | 2019-07-15 17:34 | EKG ---
Test Reason : Blood Pressure : / mmHG Vent. Rate : 082 BPM Atrial Rate : 082 BPM P-R Int : 186 ms QRS Dur : 068 ms QT Int : 380 ms P-R-T Axes : 054 022 052 degrees QTc Int : 443 ms Sinus rhythm with Premature atrial complexes Otherwise normal ECG When compared with ECG of 13-JUL-2019 11:33, (Unconfirmed) Criteria for Septal infarct are no longer Present Confirmed by ISAAC PORTER, SMarry ([id number]) on 07/15/2019 5:34:31 PM Referred By: JJ Confirmed By:DR. Odessa GRAY MD
[2019-07-15] MEDS: Atorvastatin Calcium 40 MG TAB PO SCH (20:56)
[2019-07-16] MEDS: Acetaminophen 325 MG TAB PO PRN ×3 (00:58→20:33)
--- NOTE | 2019-07-16 02:11 | PDOC.EVN ---
Event Note - Event Note Event Note: Nursing called stating multiple pauses on tele monitor, reports 2.1 sec, 2.2 sec. 3.9 sec and 3.5sec. Patient was sleeping. Asymptomatic. VS stable. Reviewed electrolytes, no abnormalities. Will continue to monitor closely.
[2019-07-16] MEDS ORDERED: Sodium Chloride 0.9% (PF) 10 ML VIAL FS PRN (02:41)
[2019-07-16 05:11] LABS: Hemoglobin A1c 5.4 % (4.0-6.0)
[2019-07-16] MEDS ORDERED: Pantoprazole 40 MG VIAL IVP SCH (09:00)
[2019-07-16] MEDS: Multivitamin W/ Minerals 1 TAB PO SCH (09:08)
[2019-07-16] MEDS: Thiamine 100 MG TAB PO SCH (09:08)
[2019-07-16] MEDS: Folic Acid 1 MG TAB PO SCH (09:08)
[2019-07-16] MEDS: Nicotine 21 MG PATCH TD SCH (09:08)
[2019-07-16] MEDS: Cyanocobalamin (Vitamin B-12) 1,000 MCG TAB PO SCH (09:08)
[2019-07-16] MEDS: Lisinopril 5 MG TAB PO SCH (09:08)
[2019-07-16] MEDS: Docusate 100 MG CAP PO PRN ×2 (09:14→20:33)
[2019-07-16 09:28] LABS: #Eosinphils 0.1 thou/uL (0.0-0.7); #Lymphocytes 1.6 thou/uL (1.20-3.40); #Monocytes 0.9 thou/uL (0.11-0.59); #Neutrophils 7.8 thou/uL (1.40-6.50); %Basophils 0.4 % (0.0-1.0); %Eosinophils 1.1 % (0.0-10.0); %Lymphocytes 15.1 % (21.0-51.0); %Monocytes 8.5 % (0.0-10.0); Hemoglobin 15.8 g/dL (12.0-16.0); Mean Corpuscular HGB CONC 32.6 g/dL (32.0-36.0); Mean Corpuscular Hemoglobin 32.2 pg (27.0-31.0); Mean Corpuscular Volume 98.8 fL (78.0-98.0); Mean Platelet Volume 7.2 fL (7.4-10.4); Platelet Count 167 thou/uL (130-400); RBC Distribution Width 12.4 % (11.5-14.5); Red Blood Cell (RBC) Count 4.92 mill/uL (4.20-5.40); White Blood Cell (WBC) Count 10.5 thou/uL (4.8-10.8)
[2019-07-16 09:50] LABS: Anion Gap 11 mmol/L (10-20); BUN (Urea Nitrogen) 9 mg/dL (9.8-20.1); Calc. Creatinine Clearance 95 mL/min (70-130); Calcium 9.1 mg/dL (7.8-10.44); Carbon Dioxide 26 mmol/L (23-31); Chloride 105 mmol/L (98-107); Estimated GFR-MDRD 73; Glucose 111 mg/dL (83-110); Sodium 138 mmol/L (136-145)
--- NOTE | 2019-07-16 12:20 | PDOC.HOSPP ---
- Subjective Encounter Date: 07/16/19 Encounter Time: 12:18 Subjective: Ms. Burnette was seen today in follow-up of acute CVA. She does not have any complaints. She wants to go home. - Objective Vital Signs & Weight: Vital Signs (12 hours) Temp Pulse Resp BP Pulse Ox 07/16/19 11:47 98.3 F 88 16 141/78 H 95 07/16/19 09:08 86 07/16/19 07:56 97.5 F L 86 18 161/91 H 95 07/16/19 07:09 96 07/16/19 05:01 129/64 07/16/19 04:36 98.3 F 70 18 172/102 H 96 07/16/19 01:46 137/84 Weight Weight 204 lb 9.6 oz Most Recent Monitor Data Heart Rate from ECG 77 NIBP 164/86 NIBP BP-Mean 112 Respiration from ECG 24 SpO2 97 I&O: 07/15/19 07/16/19 07/17/19 06:59 06:59 06:59 Intake Total 925 790 Output Total 950 450 Balance -25 340 Result Diagrams: 07/16/19 09:16 07/16/19 09:16 Hospitalist ROS - Medication Medications: Active Medications Generic Name Dose Route Start Last Admin Trade Name Freq PRN Reason Stop Dose Admin Acetaminophen 650 mg 07/13/19 13:47 07/16/19 09:14 Tylenol PO 650 mg Q6H PRN Administration Headache/Fever/Mild Pain (1-3) Albuterol/Ipratropium 3 ml 07/14/19 16:24 07/14/19 22:13 Duoneb NEB 3 ml Q4H PRN Administration SOB &/or Wheezing Atorvastatin Calcium 40 mg 07/13/19 21:00 07/15/19 20:56 Lipitor PO 40 mg HS PUSHPA Administration Beer 1 each 07/13/19 17:00 07/15/19 18:43 Beer PO 1 each 1200,1700 PUSHPA Administration Cyanocobalamin 1,000 mcg 07/14/19 09:00 07/16/19 09:08 Vitamin B-12 PO 1,000 mcg DAILY PUSHPA Administration Docusate Sodium 100 mg 07/13/19 13:47 07/16/19 09:14 Colace PO 100 mg BIDPRN PRN Administration Constipation Folic Acid 1 mg 07/14/19 09:00 07/16/19 09:08 Folvite PO 1 mg DAILY PUSHPA Administration Iron/Minerals/Multivitamins 1 tab 07/14/19 09:00 07/16/19 09:08 Theragran M PO 1 tab DAILY [facility] Administration Labetalol HCl 10 mg 07/13/19 13:47 07/13/19 16:18 Normodyne SLOW IVP 10 mg Q10MIN PRN Administration TO KEEP SBP < 160 Lisinopril 5 mg 07/15/19 09:00 07/16/19 09:08 Zestril PO 5 mg DAILY [facility] Administration Nicotine 21 mg 07/14/19 09:00 07/16/19 09:08 Nicoderm Patch TD 21 mg DAILY P[facility] Administration Sodium Chloride 10 ml 07/13/19 21:00 07/16/19 09:09 Flush - Normal Saline IVF Not Given Q12HR PUSH[facility] Thiamine HCl 100 mg 07/14/19 09:00 07/16/19 09:08 Thiamine PO 100 mg DAILY PUSHPA Administration - Exam Eye: PERRL, anicteric sclera Heart: RRR, no murmur, no gallops, no rubs, normal peripheral pulses Respiratory: CTAB, no wheezes, no rales, no ronchi, normal chest expansion, no tachypnea, normal percussion Gastrointestinal: soft, non-tender, non-distended, normal bowel sounds, no palpable masses, no hepatomegaly Extremities: no cyanosis, no edema Hosp A/P (1) CVA (cerebral vascular accident) Code(s): I63.9 - CEREBRAL INFARCTION, UNSPECIFIED Status: Acute (2) Alcohol abuse Code(s): F10.10 - ALCOHOL ABUSE, UNCOMPLICATED Status: Chronic (3) HTN (hypertension) Code(s): I10 - ESSENTIAL (PRIMARY) HYPERTENSION Status: Acute (4) Tobacco abuse Code(s): Z72.0 - TOBACCO USE Status: Chronic - Plan * Acute right MCA CVA, s/p TPA- she is clinically stable * Repeat CT scan is pending * Patient had sinus pauses up to 3 seconds- this may be related to the recent CVA. She is not on any medications to affect her AV-node- will consult Cardiology * Continue lipitor * HTN- continue Lisinopril * Continue PT/OT * She does not want to go to inpatient rehab * Hopefully home today
[2019-07-16] MEDS: BEER 1 CAN PO SCH ×2 (13:03→18:05)
--- NOTE | 2019-07-16 13:03 | CT ---
CT OF THE BRAIN WITHOUT CONTRAST: 07/16/19 INDICATION: Follow-up intracranial hemorrhage. COMPARISON: Prior exam dated 07/15/19, 07/13/19 and MR of the brain dated 07/14/19. FINDINGS: The intraparenchymal hemorrhage is slightly larger than the most recent CT evaluation where previousl y measured 2.4 x 2.1 cm. This now measures 2.7 x 2.2 cm. The degree of surrounding vasogenic edema of the right frontal lobe intraparenchymal hemorrhage is not appreciably changed. No midline shift is e vident. The basilar cisterns remain patent. No hydrocephalus is noted. The small focal cortically bas ed infarct involving the right temporoparietal region is similar appearing. The infarct involving the right caudate body is similar appearing. Mastoid air cells and paranasal sinuses are clear. IMPRESSION: 1. Slight interval enlargement of the right frontal lobe intraparenchymal hemorrhage measuring 2 .7 x 2.2 cm with surrounding vasogenic edema. 2. Small cortically based infarct involving the right temporo-occipital region is stable appeari ng. Small infarct involving the right caudate body is similar appearing. No hydrocephalus or midline shift is demonstrated. POS: [facility]
--- NOTE | 2019-07-16 13:10 | PDOC.HOSPP ---
- Subjective Encounter Date: 07/16/19 Subjective: NEUROLOGY PROGRESS NOTE Patient is alert, awake and following commands appropriately. - Objective Vital Signs & Weight: Vital Signs (12 hours) Temp Pulse Resp BP Pulse Ox 07/16/19 11:47 98.3 F 88 16 141/78 H 95 07/16/19 09:08 86 07/16/19 09:05 95 07/16/19 07:56 97.5 F L 86 18 161/91 H 95 07/16/19 07:09 96 07/16/19 05:01 129/64 07/16/19 04:36 98.3 F 70 18 172/102 H 96 07/16/19 01:46 137/84 Weight Weight 204 lb 9.6 oz Most Recent Monitor Data Heart Rate from ECG 77 NIBP 164/86 NIBP BP-Mean 112 Respiration from ECG 24 SpO2 97 I&O: 07/15/19 07/16/19 07/17/19 06:59 06:59 06:59 Intake Total 925 790 Output Total 950 450 Balance -25 340 Result Diagrams: 07/16/19 09:16 07/16/19 09:16 Radiology Reviewed by me: Yes EKG Reviewed by me: Yes Hospitalist ROS - Review of Systems Constitutional: denies: fever, chills, sweats, weakness, malaise, other Eyes: denies: pain, vision change, conjunctivae inflammation, eyelid inflammation, redness, other ENT: denies: ear pain, ear discharge, nose pain, nose discharge, nose congestion , mouth pain, mouth swelling, throat pain, throat swelling, other Respiratory: denies: cough, dry, shortness of breath, hemoptysis, SOB with excertion, pleuritic pain, sputum, wheezing, other Cardiovascular: denies: chest pain, palpitations, orthopnea, paroxysmal noc. dyspnea, edema, light headedness, other Gastrointestinal: denies: nausea, vomiting, abdominal pain, diarrhea, constipation, melena, hematochezia, other Genitourinary: denies: dysuria, frequency, incontinence, hematuria, retention, other Musculoskeletal: denies: neck pain, shoulder pain, arm pain, back pain, hand pain, leg pain, foot pain, other Skin: denies: rash, lesions, crystal, bruising, other Neurological: reports: change in speech. denies: weakness, numbness, incoordination, confusion, seizures, other - Medication Medications: Active Medications Generic Name Dose Route Start Last Admin Trade Name Freq PRN Reason Stop Dose Admin Acetaminophen 650 mg 07/13/19 13:47 07/16/19 09:14 Tylenol PO 650 mg Q6H PRN Administration Headache/Fever/Mild Pain (1-3) Albuterol/Ipratropium 3 ml 07/14/19 16:24 07/14/19 22:13 Duoneb NEB 3 ml Q4H PRN Administration SOB &/or Wheezing Atorvastatin Calcium 40 mg 07/13/19 21:00 07/15/19 20:56 Lipitor PO 40 mg HS PUSHPA Administration Beer 1 each 07/13/19 17:00 07/16/19 13:03 Beer PO 1 each 1200,1700 PUSHPA Administration Cyanocobalamin 1,000 mcg 07/14/19 09:00 07/16/19 09:08 Vitamin B-12 PO 1,000 mcg DAILY PUSHPA Administration Docusate Sodium 100 mg 07/13/19 13:47 07/16/19 09:14 Colace PO 100 mg BIDPRN PRN Administration Constipation Folic Acid 1 mg 07/14/19 09:00 07/16/19 09:08 Folvite PO 1 mg DAILY PUSHPA Administration Iron/Minerals/Multivitamins 1 tab 07/14/19 09:00 07/16/19 09:08 Theragran M PO 1 tab DAILY PUSHPA Administration Labetalol HCl 10 mg 07/13/19 13:47 07/13/19 16:18 Normodyne SLOW IVP 10 mg Q10MIN PRN Administration TO KEEP SBP < 160 Lisinopril 5 mg 07/15/19 09:00 07/16/19 09:08 Zestril PO 5 mg DAILY PUSHPA Administration Nicotine 21 mg 07/14/19 09:00 07/16/19 09:08 Nicoderm Patch TD 21 mg DAILY PUSHPA Administration Sodium Chloride 10 ml 07/13/19 21:00 07/16/19 09:09 Flush - Normal Saline IVF Not Given Q12HR PUSHPA Thiamine HCl 100 mg 07/14/19 09:00 07/16/19 09:08 Thiamine PO 100 mg DAILY PUSHPA Administration - Exam General Appearance: awake alert Eye: PERRL, anicteric sclera ENT: normocephalic atraumatic, no oropharyngeal lesions Neck: supple Heart: RRR Respiratory: CTAB Gastrointestinal: soft Extremities: no cyanosis, no clubbing, no edema Skin: normal turgor, no lesions, no rashes Neurological: cranial nerve grossly intact, normal sensation to touch, no new deficit Musculoskeletal: normal tone, normal strength, no muscle wasting Psychiatric: normal affect, normal behavior, A&O x 3, oriented to person, oriented to place, oriented to time Hosp A/P (1) CVA (cerebral vascular accident) Code(s): I63.9 - CEREBRAL INFARCTION, UNSPECIFIED Status: Acute - Plan 73 year old with slurred speech and left sided wekness s/p tpa which is now resolved. HCT today showed interval enlargement with associated edema. Will repeat again in AM Neurochecks every 4 hours. Stat HCT if neurological status declines. MRI Brain consistent with subacute stroke with associated hemorrhage. Echocardiography did not show any thrombus or PFO. Continue statin for secondary stroke prevention. Telemetry showed 4 second sinus pauses. Consider cardiology input. Continue home medications. Strict control of BP and BG. Continue medical management per primary team. PT/OT/Speech Plan discussed with patient and the nursing staff.
--- NOTE | 2019-07-16 19:45 | CON ---
DATE OF CONSULTATION: HISTORY OF PRESENT ILLNESS: The patient is a 73-year-old woman, who presented after a cerebrovascular accident, was noted to have long pauses on telemetry monitoring. The patient has no previous cardiac history. The patient states that she was in her usual state of health when she presented with acute onset of left-sided weakness. The patient received emergent tPA. She has had a remarkable recovery. The patient has been monitored on telemetry. She has been noted to have prolonged pauses. The patient states that she has no history of syncope. She denies having any dizziness. The patient states she did have one fall about a week ago when she had tripped. The patient denies having any chest discomfort. The patient denies having any dyspnea. The patient has multiple cardiac risk factors including tobacco abuse and a strong family history of coronary artery disease. PAST MEDICAL HISTORY: 1. COPD. 2. Diverticulitis. PAST SURGICAL HISTORY: Hysterectomy and ovarian surgery. SOCIAL HISTORY: Long history of tobacco abuse, long history of ethanol abuse. FAMILY HISTORY: Strong family history of heart disease. Brother had a myocardial infarction. ALLERGIES: BACITRACIN, POLYMYXIN, AND NEOMYCIN. MEDICATIONS: None. REVIEW OF SYSTEMS: Ten-point system otherwise unremarkable. No history of easy bruising or bleeding or bright red blood per rectum. PHYSICAL EXAMINATION: GENERAL: Obese woman, in no acute distress. VITAL SIGNS: Blood pressure 141/78. NECK: No jugular venous distention. LUNGS: Clear to auscultation. HEART: Regular rate and rhythm. Normal S1 and S2. No murmurs. ABDOMEN: Nondistended. EXTREMITIES: No edema. VASCULAR: Radial pulses are 2+. LABORATORY DATA: Sodium 138, potassium 3.9, chloride 106, bicarbonate 23, BUN 10, creatinine 0.76, and glucose 144. Her white blood cell count is 10.5, hemoglobin 15.8, hematocrit 48.6, and platelets 167. DIAGNOSTIC DATA: EKG normal sinus rhythm with possible previous septal infarct. Echocardiogram normal left ventricular ejection fraction of 60% to 65%. Telemetry monitoring revealed sinus pauses up to 3.5 seconds primarily associated with sleeping. IMPRESSION: 1. Status post cerebrovascular accident. 2. Prolonged pauses, asymptomatic. 3. Hypertension. 4. Tobacco abuse. 5. Ethanol abuse. This patient presented after having a cerebrovascular accident. She is on appropriate medications. Her prolonged pauses are most likely due to sleep apnea. She needs to undergo a sleep study. She has multiple cardiac risk factors. I would recommend outpatient stress testing when she recovers from her cerebrovascular accident. It is imperative this patient to discontinue smoking and decrease her consumption of alcohol. We will follow this patient with you through this hospitalization. Job ID: [id number] MTDD
[2019-07-16] MEDS: Atorvastatin Calcium 40 MG TAB PO SCH (20:33)
[2019-07-17] MEDS: Lisinopril 5 MG TAB PO SCH (08:32)
[2019-07-17] MEDS: Cyanocobalamin (Vitamin B-12) 1,000 MCG TAB PO SCH (08:32)
[2019-07-17] MEDS: Folic Acid 1 MG TAB PO SCH (08:32)
[2019-07-17] MEDS: Thiamine 100 MG TAB PO SCH (08:32)
[2019-07-17] MEDS: Multivitamin W/ Minerals 1 TAB PO SCH (08:32)
[2019-07-17] MEDS: Nicotine 21 MG PATCH TD SCH (08:33)
--- NOTE | 2019-07-17 09:30 | CT ---
CT HEAD WITHOUT IV CONTRAST COMPARISON: 07/16/2019 HISTORY: Follow-up intracranial hemorrhage. TECHNIQUE: Axial CT imaging at 5 mm intervals from vertex through skull base without contrast FINDINGS: The parenchymal hemorrhage in the right anterior frontal lobe is again seen. The hemorrhage on the cu rrent study measures 2.5 cm x 2.1 cm with previous measurement of 2.7 cm x 2.2 cm. Surrounding low density area likely related to vasogenic edema is unchanged. Suggestion of minimal subarachnoid hemor rhage in the anterior right frontal lobe laterally above the level of the lateral ventricles is again present and similar to the prior CT exams. No new areas of hemorrhage are seen. Additional low- density areas within the right frontal, but in the right caudate, and right temporal occipital lobe are seen and shown to represent areas of infarction on a prior MRI exam on 07/14/2019. Mild mass effect on the right sylvian fissure and adjacent sulci is again seen related to the parench ymal hematoma and surrounding low density area likely attributable to vasogenic edema. There is no evidence of an acute infarction. The ventricular system is normal in size, shape, and position. Visualized paranasal sinuses are clear. Osseous structures appear intact. IMPRESSION: 1. 1. Multifocal infarctions in the right cerebral hemisphere and parenchymal hemorrhage right anteri or frontal lobe with surrounding vasogenic edema. Parenchymal hemorrhage has not significantly changed compared to prior study although measurements are slightly smaller in size. Continued follow- up is recommended to ensure expected evolutionary changes in blood products. 2. Suggestion of small subarachnoid hemorrhage right anterior superior frontal lobe.
[2019-07-17] MEDS: Acetaminophen 325 MG TAB PO PRN (10:12)
[2019-07-17 12:00] VITALS: BP 133/72; TEMP 98.3
[2019-07-17] MEDS: BEER 1 CAN PO SCH (12:51)
--- NOTE | 2019-07-17 13:01 | EKG ---
Test Reason : Blood Pressure : / mmHG Vent. Rate : 083 BPM Atrial Rate : 083 BPM P-R Int : 170 ms QRS Dur : 066 ms QT Int : 392 ms P-R-T Axes : 052 022 050 degrees QTc Int : 460 ms Sinus rhythm with Premature atrial complexes Low voltage QRS Septal infarct , age undetermined Abnormal ECG Confirmed by NBA MADDEN DO ([id number]), editor dictionary JASEN CRUZ ([id number]) on 07/17/2019 1:01:06 PM Referred By: Confirmed By:NBA MADDEN DO
--- NOTE | 2019-07-17 15:05 | DIS ---
DATE OF ADMISSION: 07/13/2019 DATE OF DISCHARGE: 07/17/2019 DISCHARGE DIAGNOSES: 1. Cerebrovascular accident with dysarthria and left-sided weakness, status post tPA. Symptoms resolved. 2. Subacute stroke with associated hemorrhage. 3. Hypertension. CONSULTS: Neurology consult as well as Cardiology consult. DISCHARGE MEDICATIONS: 1. Lipitor 40 mg at bedtime. 2. Folic acid 1 mg daily. 3. Lisinopril 5 mg daily. 4. Thiamine 100 mg daily. PHYSICAL EXAMINATION: GENERAL: On the day of discharge, she is hemodynamically stable. Ambulating. Her son is at the bedside. Discharge plan discussed and they are agreeable to be discharged to home. CARDIOVASCULAR: Regular rate and rhythm without murmurs, rubs, or gallops. LUNGS: Clear. NEUROLOGICAL: No focal deficits. Her dysarthria resolved. HOSPITAL COURSE: Please refer H and P and daily progress notes for more details. Briefly, 73-year-old female with history of hypertension, presented with dysarthria and left lower extremity weakness and facial droop. She is status post tPA, symptoms resolved. Neurology as well as Neurosurgery followed. She had repeat CT of the head today on showing parenchymal hemorrhage in the right anterior frontal lobe, mild mass effect on the right sylvian fissure, multifocal infarct in the right cerebral hemisphere with parenchymal hemorrhage, right anterior frontal lobe with vasogenic edema. Parenchymal hemorrhage has not changed compared to previous study. Suggestion of small subarachnoid hemorrhage in the right anterior superior frontal lobe. I specifically discussed with neurology on the above findings and it appears that there is no new hemorrhage, could be residual effect from tPA. she is safe to start aspirin and patient has been informed to take it a week from now. Neurology followed with us. She participated in the physical therapy as well as occupational. For hypertension, she was started on low-dose lisinopril and tolerating well. The patient does not want to go to inpatient rehab. She is stable to be discharged home. DISCHARGE INSTRUCTION: Activity as tolerated. Healthy heart diet. Follow up with primary care physician in one week. The patient as instructed can start daily baby aspirin a week from now. TIME SPENT: Discharge time took over 30 minutes. Job ID: [id number] MTDD
== END 2019-07-17 14:05 | disposition home health service (06) | DRG 61 ==
LOC: ERS 10:46 → CCU 13:07 → 2SE 07-14 14:38
PROVIDERS: ADMIT Internal Medicine; ATTEND Internal Medicine
DX: I63.511 Cerebral infarction due to unspecified occlusion or stenosis of right middle cerebral artery (principal); G93.6 Cerebral edema; I61.8 Other nontraumatic intracerebral hemorrhage; G81.94 Hemiplegia, unspecified affecting left nondominant side; R47.1 Dysarthria and anarthria; I10 Essential (primary) hypertension; R29.810 Facial weakness; F41.9 Anxiety disorder, unspecified; F17.210 Nicotine dependence, cigarettes, uncomplicated; E78.5 Hyperlipidemia, unspecified; R47.81 Slurred speech; R29.721 NIHSS score 21; G89.29 Other chronic pain; F10.10 Alcohol abuse, uncomplicated; J44.9 Chronic obstructive pulmonary disease, unspecified; E66.9 Obesity, unspecified; Z90.710 Acquired absence of both cervix and uterus; Z88.1 Allergy status to other antibiotic agents; Z88.8 Allergy status to other drugs, medicaments and biological substances; Z68.34 Body mass index [BMI] 34.0-34.9, adult; Z71.6 Tobacco abuse counseling
CPT/HCPCS: 36415; 36416; 70450; 70496; 70498; 70551; 71045; 80048; 80053; 80061; 80307; 83036; 83735; 84484; 85025; 85610; 85730; 93005; 93010; 93306; 94640; 96361; 96365; 96375; 99292; J2997; J7050; J7620; Q9967

== ENCOUNTER 2019-09-20 13:21 | Outpatient (CLI) | payer MEDICARE, OTHER ==
[2019-09-21 12:23] LABS: SARS-CoV-2 MS2 Positive; SARS-CoV-2 N Gene Negative; SARS-CoV-2 S Gene Negative; SARS-CoV-2 orf1ab Negative
== END 2019-09-20 13:22 | disposition home or self-care (01) ==
LOC: LABSCS 13:21
PROVIDERS: ATTEND Student in an Organized Health Care Education/Training Program
DX: Z11.59 Encounter for screening for other viral diseases (principal); E04.1 Nontoxic single thyroid nodule
CPT/HCPCS: 87635; U0003

== ENCOUNTER 2019-09-24 12:31 | Day surgery (SDC) | payer MEDICARE ==
[2019-09-23 12:21] VITALS: BMI 32.2
[~2019-09-24 12:31] MED LIST changes: -Iopamidol-370 76% 500 ML 1 ML ONE; +Prevnar 13-Val Conj/PF 0.5 ML SYRINGE IM ONE
[2019-09-24] MEDS ORDERED: Sodium Bicarbonate 2.5 MEQ/5 ML VIAL ONE (12:50)
[2019-09-24] MEDS ORDERED: Lidocaine 1% PF 5 ML VIAL ONE (12:50)
[2019-09-24 15:29] VITALS: BP 120/60; TEMP 98.3
--- NOTE | 2019-09-24 15:50 | ULT ---
ULTRASOUND THYROID: DATE: 09/24/2019 HISTORY: 73-year-old female with bilateral thyroid nodules found on CT angiogram of head and neck of 07/13/2019 . FINDINGS: Isthmus: 0.3 cm AP. Right lobe: 3.9 x 2.6 x 3.4 cm. Left lobe: 4.8 x 1.5 x 1.3 cm. Within the right lobe, there is a 3.8 x 2.6 x 2.2 cm nodule, dominating the right lobe. Composition: Solid: 2 points. Echogenicity: There are intermediate, hyperechoic, and slightly hypoechoic components. The portions w arrant 2 points. Shape: Wider than tall: 0 points. Margin: Smooth: 0 points. Echogenic foci: None: 0 points. Total points: 4 TIRADS category 4: Moderately suspicious. Recommendation: FNA if greater than or equal to 1.5 cm. This was biopsied with FNA later in the day. In the mid anterior portion of the left lobe, there is a 1.6 x 0.8 x 1.3 cm nodule. Composition: Mixed solid and cystic: 1 Point. Echogenicity: Isoechoic: 1 point. Shape: Wider than tall: 0 points Margin: Smooth: 0 points Echogenic foci: Numerous punctate echogenic foci: 3 points. Total points: 5 TIRADS category 4: Moderately suspicious. Recommendation: FNA if greater than or equal to 1.5 cm. This was biopsied with FNA later in the day. At lower pole of left lobe, there is a 1.7 x 2.6 x 1.6 cm nodule. Composition: Solid: 2 points. Echogenicity: Isoechoic: 1. Shape: Wider than tall: 0 points Margin: Smooth: 0 points Echogenic foci: None: 0 points Total points: 3. TIRADS category 3: Mildly suspicious. Recommendation: FNA if greater than or equal to 2.5 cm. Follow-up if greater than or equal to 1.5 cm (at 1, 3, and 5 years). Because of its far inferior position at the cervicothoracic junction it was elected not to biopsy thi s nodule. Serial follow-up will be recommended. IMPRESSION: 1.) 3.8 cm dominant nodule in right lobe. TIRADS category 4. This was biopsied with FNA later in the same day. 2) 1.6 cm left interpolar large nodule. TIRADS category 4. This was biopsied with FNA later in the me day. 3) 2.6 cm left lower pole nodule. TIRADS category 3. Because of its far inferior location, this was n ot biopsied. For this, we recommend serial follow-up thyroid ultrasounds at 1, 3, and 5 years.
--- NOTE | 2019-09-24 16:06 | ULT ---
Ultrasound-guided biopsy right parotid tail mass: 09/24/2019 HISTORY: 73-year-old former smoker with mass at right upper lateral neck found on CT, probably pedunculated ar ising from tail of superficial lobe of right parotid gland. TECHNIQUE: Signed informed consent obtained. Performed under under ultrasound guidance, using standard sterile t echnique. Skin of right lateral neck prepared and draped in usual sterile fashion. 25-gauge needle used to apply buffered lidocaine superficially and deeply. Prominent anteroinferior approach, a serie s of 3 separate 25-gauge needles mounted on 3 separate 5 mL syringes were thrust into the solid nodule while applying suction on syringes. Each sample was given to Dr. Mak from pathology, who pre pared preliminary touch preparation microscopic slides. He stated that the second pass sample demonstrates diagnostic cells. The third pass material was placed directly into solution. Patient kip erated procedure well. No complications. FINDINGS: The mass in the right side of the neck is a 2.5 x 1.9 x 1.9 cm smoothly well-circumscribed solid mass with mixed hypoechoic, intermediate echogenicity, and a few slightly hyperechoic, components. Blood flow is demonstrated throughout the mass by Doppler. There is good posterior acoustic through t ransmission, and no shadowing. Procedural images demonstrate 3 different passes of 25-gauge needle into the mass. IMPRESSION: Technically successful 25-gauge fine-needle aspiration biopsy x3 of the solid mass in the right later al upper neck, which may be a pedunculated mass arising from the tail of the right parotid gland.
--- NOTE | 2019-09-24 16:31 | ULT ---
Ultrasound guided thyroid biopsies bilateral: 09/24/2019 HISTORY: 73-year-old female with bilateral thyroid nodules. TECHNIQUE: Signed informed consent obtained. Procedures performed under ultrasound guidance, using standard ster ile technique. The dominant 3.8 cm, TIRADS category 4 right solid nodule was biopsied first. A series of 4 separate 25-gauge needles mounted on 4 separate 5 mL syringes were thrust into the nodu le while applying suction to the syringes. Each sample was given to senior cytogenetics laboratory director from pathology. The same technique was used to aspirate the contents of the 1.6 cm TIRADS category 4 left midpole thy roid nodule x4. Patient tolerated procedure well. No complications. IMPRESSION: 1.) Successful 25-gauge fine-needle aspiration biopsy of the TIRADS category 4 large right 3.8 cm thy roid nodule x4. 2) Successful 25-gauge fine-needle aspiration biopsy of the TIRADS category 4 left midpole 1.6 cm thy roid nodule x4. 3) the 2.6 cm left lower pole TIRADS category 3 lesion was not biopsied. For this, serial follow-up t hyroid ultrasounds at 1, 3, and 5 years, are recommended.
--- NOTE | 2019-09-24 16:46 | ULT ---
Ultrasound-guided biopsy right parotid tail mass: 09/24/2019 HISTORY: 73-year-old former smoker with mass at right upper lateral neck found on CT, probably pedunculated ar ising from tail of superficial lobe of right parotid gland. TECHNIQUE: Signed informed consent obtained. Performed under under ultrasound guidance, using standard sterile t echnique. Skin of right lateral neck prepared and draped in usual sterile fashion. 25-gauge needle used to apply buffered lidocaine superficially and deeply. Prominent anteroinferior approach, a serie s of 3 separate 25-gauge needles mounted on 3 separate 5 mL syringes were thrust into the solid nodule while applying suction on syringes. Each sample was given to Dr. Mak from pathology, who pre pared preliminary touch preparation microscopic slides. He stated that the second pass sample demonstrates diagnostic cells. The third pass material was placed directly into solution. Patient kip erated procedure well. No complications. FINDINGS: The mass in the right side of the neck is a 2.5 x 1.9 x 1.9 cm smoothly well-circumscribed solid mass with mixed hypoechoic, intermediate echogenicity, and a few slightly hyperechoic, components. Blood flow is demonstrated throughout the mass by Doppler. There is good posterior acoust ic through transmission, and no shadowing. Procedural images demonstrate 3 different passes of 25-gauge needle into the mass. IMPRESSION: Technically successful 25-gauge fine-needle aspiration biopsy x3 of the solid mass in the right later al upper neck, which may be a pedunculated mass arising from the tail of the right parotid gland.
== END 2019-09-24 15:06 | disposition home or self-care (01) ==
LOC: ULT 12:31
PROVIDERS: ATTEND Student in an Organized Health Care Education/Training Program
PROC: 0GBG3ZX Excision of Left Thyroid Gland Lobe, Percutaneous Approach, Diagnostic (ICD-10-PCS; principal; 2019-09-24)
PROC: 0GBH3ZX Excision of Right Thyroid Gland Lobe, Percutaneous Approach, Diagnostic (ICD-10-PCS; 2019-09-24)
PROC: 0CBJ3ZX Excision of Minor Salivary Gland, Percutaneous Approach, Diagnostic (ICD-10-PCS; 2019-09-24)
DX: E04.2 Nontoxic multinodular goiter (principal); K11.8 Other diseases of salivary glands; I10 Essential (primary) hypertension; Z86.73 Personal history of transient ischemic attack (TIA), and cerebral infarction without residual deficits; Z87.891 Personal history of nicotine dependence; Z79.899 Other long term (current) drug therapy
CPT/HCPCS: 60100; 76536; 76942; 88172; 88173; 88177; 88305

== ENCOUNTER 2019-09-27 17:30 | Outpatient (CLI) | payer MEDICARE, OTHER | END 2019-09-27 17:31 | disposition home or self-care (01) | LOC: SLEEPLAB 17:30 | PROVIDERS: ATTEND Internal Medicine Critical Care Medicine | DX: G47.33 Obstructive sleep apnea (adult) (pediatric) (principal); E66.9 Obesity, unspecified; Z68.32 Body mass index [BMI] 32.0-32.9, adult | CPT/HCPCS: 95806 ==

== ENCOUNTER 2019-12-21 07:44 | Emergency (ER) | payer MEDICARE, OTHER ==
[2019-12-21 08:20] LABS: #Eosinphils 0.1 thou/uL (0.0-0.7); #Lymphocytes 1.6 thou/uL (1.20-3.40); #Monocytes 0.4 thou/uL (0.11-0.59); #Neutrophils 4.7 thou/uL (1.40-6.50); %Basophils 0.5 % (0.0-1.0); %Eosinophils 1.5 % (0.0-10.0); %Lymphocytes 23.5 % (21.0-51.0); %Monocytes 5.8 % (0.0-10.0); %Neutrophils 68.8 % (42.0-75.0); Hemoglobin 13.8 g/dL (12.0-16.0); Mean Corpuscular HGB CONC 33.2 g/dL (32.0-36.0); Mean Corpuscular Hemoglobin 31.4 pg (27.0-31.0); Mean Corpuscular Volume 94.5 fL (78.0-98.0); Mean Platelet Volume 7.2 fL (7.4-10.4); Platelet Count 180 thou/uL (130-400); RBC Distribution Width 11.5 % (11.5-14.5); Red Blood Cell (RBC) Count 4.38 mill/uL (4.20-5.40); White Blood Cell (WBC) Count 6.8 thou/uL (4.8-10.8)
--- NOTE | 2019-12-21 08:38 | RAD ---
Exam: Chest one view HISTORY:Diarrhea, times a couple of days. Comparison: 07/13/2019 FINDINGS: Cardiac silhouette: Normal Aorta: Atherosclerosis Pulmonary vessels: Normal Costophrenic angles: Clear LUNGS: No masses or consolidation. Pneumothorax: None Osseous abnormalities: None IMPRESSION: No acute cardiopulmonary process.
[2019-12-21 08:49] LABS: ALT (SGPT) 40 U/L (8-55); AST (SGOT) 42 U/L (5-34); Alkaline Phosphatase 81 U/L (40-110); Anion Gap 14 mmol/L (10-20); BUN (Urea Nitrogen) 25 mg/dL (9.8-20.1); Bilirubin, Total 0.5 mg/dL (0.2-1.2); CK (CPK) 88 U/L (29-168); Calc. Creatinine Clearance 0 mL/min (70-130); Calcium 9.7 mg/dL (7.8-10.44); Carbon Dioxide 22 mmol/L (23-31); Chloride 105 mmol/L (98-107); Estimated GFR-MDRD 58; Globulin 3.6 g/dL (2.4-3.5); Glucose 105 mg/dL (83-110); Magnesium 1.8 mg/dL (1.6-2.6); Potassium 5.2 mmol/L (3.5-5.1); Protein, Total 7.6 g/dL (6.0-8.3); Sodium 136 mmol/L (136-145)
== END 2019-12-21 10:21 | disposition home or self-care (01) ==
LOC: ERS 07:44
DX: R42 Dizziness and giddiness (principal); R19.7 Diarrhea, unspecified; I10 Essential (primary) hypertension; F41.9 Anxiety disorder, unspecified; Z86.73 Personal history of transient ischemic attack (TIA), and cerebral infarction without residual deficits; Z79.899 Other long term (current) drug therapy
CPT/HCPCS: 71045; 80053; 82550; 83735; 84484; 85025; 93005

== ENCOUNTER 2020-07-11 09:27 | Outpatient (CLI) | payer MEDICARE, OTHER ==
[~2020-07-11 09:27] MED LIST changes: +Iopamidol-370 76% 500 ML 1 ML ONE; -Prevnar 13-Val Conj/PF 0.5 ML SYRINGE IM ONE
== END 2020-07-11 09:28 | disposition home or self-care (01) ==
LOC: BICCT 09:27
PROVIDERS: ATTEND Student in an Organized Health Care Education/Training Program
DX: K11.8 Other diseases of salivary glands (principal); R22.1 Localized swelling, mass and lump, neck; E04.2 Nontoxic multinodular goiter
CPT/HCPCS: 70491; 82565; Q9967

== ENCOUNTER 2020-08-03 10:18 | Outpatient (CLI) | payer MEDICARE, OTHER ==
[2020-08-03 13:09] LABS: Hemoglobin 12.4 g/dL (12.0-15.5)
[2020-08-03 13:10] LABS: Anion Gap 15 mmol/L (10-20); BUN (Urea Nitrogen) 19 mg/dL (9.8-20.1); Calc. Creatinine Clearance 0 mL/min (70-130); Calcium 9.5 mg/dL (7.8-10.44); Carbon Dioxide 25 mmol/L (23-31); Chloride 105 mmol/L (98-107); Glucose 101 mg/dL (83-110); Potassium 4.9 mmol/L (3.5-5.1); Sodium 140 mmol/L (136-145)
[2020-08-03 23:18] LABS: SARS-CoV-2 NAA Rapid Test Not Detected (NotDetected)
== END 2020-08-03 10:19 | disposition home or self-care (01) ==
LOC: LABBT 10:18
PROVIDERS: ATTEND Student in an Organized Health Care Education/Training Program
DX: Z01.818 Encounter for other preprocedural examination (principal); E04.1 Nontoxic single thyroid nodule; R05 Cough; R53.83 Other fatigue; R09.82 Postnasal drip; R22.1 Localized swelling, mass and lump, neck; Z20.822 Contact with and (suspected) exposure to COVID-19
CPT/HCPCS: 80048; 85014; 85018; U0002; U0005

== ENCOUNTER 2020-08-08 08:39 | Observation (INO) | payer MEDICARE ==
[2020-08-08] MEDS ORDERED: Lidocaine 1% w/Epinephrine 1:100K 20 ML VIAL ONE (11:04)
[2020-08-08] MEDS ORDERED: Fentanyl 100 MCG/2 ML VIAL ONE ×2 (11:06→13:33)
[2020-08-08] MEDS ORDERED: PROPOFOL 200 MG/20 ML VIAL ONE (11:24)
[2020-08-08] MEDS ORDERED: Ondansetron PF 4 MG/2 ML Vial ONE ×2 (11:24→14:08)
[2020-08-08] MEDS ORDERED: Lidocaine 1% PF 5 ML VIAL ONE (11:24)
[2020-08-08] MEDS ORDERED: ePHEDrine Sulfate 50 MG/10 ML VIAL ONE (11:24)
[2020-08-08] MEDS ORDERED: Rocuronium Bromide 10 MG/ML (10ML VIAL) ONE (11:24)
[2020-08-08] MEDS ORDERED: PHENYLEPHRINE-NS 100 MCG/ML 10 ML SYRINGE ONE (11:24)
[2020-08-08] MEDS ORDERED: Dexamethasone 20 MG/5 ML VIAL ONE (11:24)
[2020-08-08] MEDS ORDERED: Glycopyrrolate 0.2 MG/ML 5 ML SYRINGE ONE (11:24)
[2020-08-08] MEDS ORDERED: diphenhydrAMINE 25 MG CAP PO PRN (13:38)
[2020-08-08] MEDS ORDERED: HYDROcodone/Acetaminophen 5/325 mg Tablet PO PRN (13:38)
[2020-08-08] MEDS ORDERED: Ondansetron PF 4 MG/2 ML Vial IVP PRN (13:38)
[2020-08-08 17:56] VITALS: BMI 32.5
[2020-08-08] MEDS: Docusate 100 MG CAP PO SCH (19:54)
[2020-08-09] MEDS: Docusate 100 MG CAP PO SCH (09:05)
[2020-08-09 12:06] VITALS: BP 120/82; TEMP 97.5
== END 2020-08-09 12:26 | disposition home or self-care (01) ==
LOC: SDC 08:39 → SURG A 13:27
PROVIDERS: ADMIT Student in an Organized Health Care Education/Training Program; ATTEND Student in an Organized Health Care Education/Training Program
PROC: 0CT80ZZ Resection of Right Parotid Gland, Open Approach (ICD-10-PCS; principal; 2020-08-08)
DX: D11.0 Benign neoplasm of parotid gland (principal); E04.1 Nontoxic single thyroid nodule; R09.82 Postnasal drip; I10 Essential (primary) hypertension; F17.210 Nicotine dependence, cigarettes, uncomplicated; Z86.73 Personal history of transient ischemic attack (TIA), and cerebral infarction without residual deficits; Z79.82 Long term (current) use of aspirin; Z79.899 Other long term (current) drug therapy; Z88.1 Allergy status to other antibiotic agents; Z88.2 Allergy status to sulfonamides; Z88.5 Allergy status to narcotic agent
CPT/HCPCS: 42420; 88307; G0378 ×2; J0690; J1100; J2405; J2704; J3010

== ENCOUNTER 2022-11-01 09:24 | Emergency (ER) | payer MEDICARE | END 2022-11-01 11:24 | disposition home or self-care (01) | LOC: ERS 09:24 | DX: K59.00 Constipation, unspecified (principal); I10 Essential (primary) hypertension; Z79.899 Other long term (current) drug therapy; Z79.82 Long term (current) use of aspirin | CPT/HCPCS: 74022 ==

== ENCOUNTER 2023-03-24 09:05 | Emergency (ER) | payer MEDICARE ==
[2023-03-24 09:49] LABS: Bacteria/HPF None Seen HPF (None Seen); Bilirubin Negative (Negative); Blood, Urine Negative (Negative); CAUTI Indications for Culture Pelvic or flank pain; Clarity Clear (Clear); Glucose, Urine (Dipstick) Normal (Negative); Ketone, Urine Negative (Negative); Leukocyte Negative Leu/uL (Negative); Nitrite Negative (Negative); Protein, Urine (Dipstick) Negative (Neg-Trace); RBC/HPF 0-3 HPF (0-3); Specific Gravity, Urine 1.013 (1.002-1.036); Squamous Epithelial 0-3 HPF (0-3); Urine Culture Reflex No No; Urobilinogen Normal mg/dL (Less than 2); WBC/HPF 0-3 HPF (0-3); pH, Urine 5.5 (5.0-9.0)
[2023-03-24 09:53] LABS: #Eosinphils 0.2 thou/uL (0.0-0.7); #Monocytes 0.5 thou/uL (0.11-0.59); #Neutrophils 3.6 thou/uL (1.40-6.50); %Basophils 0.5 % (0.0-1.0); %Eosinophils 3.9 % (0.0-10.0); %Lymphocytes 26.8 % (21.0-51.0); %Monocytes 8.1 % (0.0-10.0); %Neutrophils 60.7 % (42.0-75.0); Hematocrit 40.5 % (36.0-47.0); Mean Corpuscular HGB CONC 32.1 g/dL (32.0-36.0); Mean Corpuscular Hemoglobin 30.2 pg (27.0-31.0); Mean Corpuscular Volume 94.2 fl (78.0-98.0); Platelet Count 189 10x3/uL (130-400); RBC Distribution Width 13.2 % (11.5-14.5); White Blood Cell (WBC) Count 5.9 10x3/uL (4.8-10.8)
[2023-03-24 10:13] LABS: ALT (SGPT) 17 U/L (8-55); AST (SGOT) 26 U/L (5-34); Albumin 4.2 g/dL (3.4-4.8); Alkaline Phosphatase 64 U/L (40-110); Anion Gap 13 mmol/L (10-20); BUN (Urea Nitrogen) 32 mg/dL (9.8-20.1); Bilirubin, Total 0.5 mg/dL (0.2-1.2); Calc. Creatinine Clearance 0 mL/min (70-130); Calcium 9.8 mg/dL (7.8-10.44); Carbon Dioxide 23 mmol/L (23-31); Chloride 110 mmol/L (98-107); Estimated GFR 43; Globulin 3.1 g/dL (2.4-3.5); Glucose 103 mg/dL (83-110); Potassium 5.4 mmol/L (3.5-5.1); Protein, Total 7.3 g/dL (5.8-8.1); Sodium 141 mmol/L (136-145)
== END 2023-03-24 11:12 | disposition home or self-care (01) ==
LOC: ERS 09:05
DX: R10.30 Lower abdominal pain, unspecified (principal); M54.50 Low back pain, unspecified; I10 Essential (primary) hypertension
CPT/HCPCS: 36415; 74176; 80053; 81001; 85025